=== PATIENT | male | born 1980 | race Caucasian/White ===

== ENCOUNTER → 2017-03-03 | Outpatient (CLI) | payer OTHER ==
[2017-03-03 10:18] LABS: CHOLESTEROL/HDL RATIO 4.7; THYROID STIMULATING HORMONE 0.901 uIu/ml (0.300-4.500)
[2017-03-05 20:26] LABS: HSV TYPE 1 DNA Not Detected (Not Detected); HSV TYPE 1&2 DNA SOURCE Serum; HSV TYPE 2 DNA Not Detected (Not Detected)
[2017-03-06 13:07] LABS: CHLAMYDIA TRACH RNA*** NOT DETECTED (NOT DETECTED); GC (NEIS GONORRHOEAE)RNA** NOT DETECTED (NOT DETECTED)
== END | disposition home or self-care (01) ==
LOC: C.LAB 08:11
PROVIDERS: ATTEND Internal Medicine
DX: Z00.00 Encounter for general adult medical examination without abnormal findings (principal); E66.9 Obesity, unspecified; Z13.6 Encounter for screening for cardiovascular disorders

== ENCOUNTER → 2017-03-09 | Outpatient (CLI) | payer OTHER ==
[~2017-03-09] VITALS: Ht 176.5 cm; Wt 114.5 kg
[2017-03-09 11:13] VITALS: BP 139/96; PULSE 75; Ht 176.5 cm; Wt 114.5 kg
== END | disposition home or self-care (01) ==
LOC: C.NEUR 10:57
PROVIDERS: ATTEND Internal Medicine Pulmonary Disease
DX: G47.33 Obstructive sleep apnea (adult) (pediatric) (principal)

== ENCOUNTER → 2017-04-15 | Outpatient (CLI) | payer OTHER ==
--- NOTE | 2017-04-16 06:18 | PAP/PSG TECHNICIAN REPORT ---
[facility] Dental Assistant Medical Assistant Polysomnogram Report Study name: None Report date: 04/16/2017 Study date: 04/15/2017 Referring Physician: DEVON RIZZO DO, DO Name: CHACHO JASSO Interpreting Physician: Devon Rizzo D.O. Date of : 1980 Dental Assistant Medical Assistant: Jessica Arreguin [facility]. Sex: Male Age: 36 Study Type: PSG Weight: 252 lbs 17 in Height: 36 years, Height 5' 9.5" Neck Circum: BMI: 36.68 Medications: NONE REPORTED Patient History 36 yr-old male here for a baseline/split study. He has a history of snoring, not feeling rested, and daytime sleepiness. His Rifle scale is 3. The test was started on room air. ETCO2 testing was not utilized during this study. Room 3 Parameters Monitored NPSG: E1-M2, E2-M1, Fp1-M2, Fp2-M1, F3-M2, F4-M2, F4-M1, C3-M2, C4-M2, C4-M1, O1-M2, O2-M2, O2-M1, T3-M2, T4-M1, P3-M2, P4-M1, CHIN1, CHIN2, HR, EKG, Legs, PFLOW, SNOR, FLOW, CFLOW, Tidal Volume, THOR, ABDO, SpO2, PLTH, CPRESS, ETCO2 Wave, ETCO2, pH Sleep Architecture Sleep Stages Time at Lights Off 10:44:51 PM STAGES Time (min.) TST (%) Time at Lights On 5:38:51 AM Wake 87.0 -- Total Recording Time (TRT) 414.00 min. N1 37.0 11 Total Sleep Period (TSP) 403.5 min. N2 200.0 61 Total Sleep Time (TST) 327.0min. N3 3.0 1 Awake Time 87.0 min. REM 87.0 27 Wake after Sleep Onset 76.5 min. Sleep Efficiency (SE) 79 % Sleep Onset Latency (JOSE) 10.5 min. Number of Stage 1 Shifts None Awakenings 19 Stage Changes 79 Number of REM periods 3 REM 87.0 27 REM Latency 149.0 min. NREM 240.0 73 Body Position Analysis Supine Right Left Side Prone Vertical Total Sleep Time (min.) 75.8 78.0 183.0 261.00 0.0 0.0 Total Sleep Time (%) 20% 24% 56% 80 0% N/A% Total Sleep Time REM (min.) 0.0 0.0 87.0 None 0.0 0.0 Total Sleep Time NREM (min.) 66.0 78.0 96.0 None 0.0 0.0 Intermittent Wake (min.) 9.8 7.8 69.4 None 0.0 0.0 Total Sleep Period (%) 19% None None None None None Arousals Myoclonus (PLM) * Events Count Index Events Count Index Spontaneous 20 4 Events Awake (PLMW) 67 46.2 Respiratory 5 1.5 Events Asleep w/ Arousal (PLMA) 4 0.7 PLM 4 1 Events Asleep w/o Arousal (PLMS) 35 6.4 Snoring 9 2 Total Asleep 39 7.2 Total 38 7 Total 106 15 Respiratory Analysis * CA OA MA CH H RERA Total Count 0 4 0 0 11 5 15 Index 0.0 0.7 0.0 0 2.0 1 3.7 Mean Duration 0.0 13.0 0.0 0.00 21.3 21.4 19.7 Longest Duration 0.0 16.4 0.0 0.00 0.0 23.8 28.6 Respiratory Event Summary Total Supine ~Supine Right Left Prone REM NREM Apneas Count 4 0 4 0 4 N/A 0 4 Index 0.7 0 1 0.0 1.3 N/A 0 1 Hypopneas (4% Desat) Count 11 1 10 6 4 N/A 3 8 Index 2.0 0.9 2 4.6 1.3 N/A 2.1 2.0 Apneas & All Hypopneas Count 15 1 14 6 8 N/A 3 12 Index 2.8 1 3 5 3 N/A 2.1 3.0 Respiratory Events (Fitter Up+All Hyp+RERA) Count 15 2 18 6 12 N/A 3 12 Index 3.7 2 4 4.6 3.9 N/A 2.1 4.3 Respiratory Related Arousal Count 5 2 7 0 7 N/A 0 8 Index 1.5 1 2 0 2 N/A 0 2 Snoring Analysis Supine Right Left Prone REM NREM Total Snore duration 30.1 min Snores count 537 417 546 N/A 111 1,389 1,500 Snore mean duration 1.2 Sec Snores index 488 321 179 N/A 76.6 347.3 275.2 TST with snoring (%) 9.2% Desaturation Event Summary: Minimum %SpO2 Event Count Mean/Min/Max Duration(sec.) Desaturation Index % Time In Bed > 90 20 31.4 / 9.0 / 60.0 2.9 99.4 86 - 90 0 N/A 0.0 0.6 81 - 85 0 N/A 0.0 0.0 76 - 80 0 N/A 0.0 0.0 71 - 75 0 N/A 0.0 0.0 66 - 70 0 N/A 0.0 0.0 61 - 65 0 N/A 0.0 0.0 56 - 60 0 N/A 0.0 0.0 51 - 55 0 N/A 0.0 0.0 < 50 0 N/A 0.0 0.0 Total REM NREM Awake <50% 0.0 min. 0.0 min. 0.0 min. 0.0 min. 51 - 60% 0.0 min. 0.0 min. 0.0 min. 0.0 min. 61 - 70% 0.0 min. 0.0 min. 0.0 min. 0.0 min. 71 - 80% 0.0 min. 0.0 min. 0.0 min. 0.0 min. 81 - 90% 2.6 min. 0.0 min. 2.6 min. 0.0 min. 91 - 100% 408.9 min. 87.0 min. 237.4 min. 84.4 min. Average 93 94 93 94 Minimum SpO2 90 91 90 90 Desaturation Event Index 2.9 2.8 2.8 4.1 # Desat. Events below 89% N/A N/A N/A N/A Time(%) with Saturation below 89% 0.0 0.0 0.0 0.0 Time(min.) with Saturation below 89% 0.0 0.0 0.0 0.0 Time (mins) REM (mins) NREM (mins) % of TST SpO2 Below 90% 6 N/A N6 0.0 SpO2 Below 88% 0 0 0 0 Heart Rate Analysis Min (bpm) Max (bpm) Average (bpm) Awake 53 107 70 NREM 51 89 66 REM 50 96 63 Overall 50 96 65 Supplemental O2 Values Minimum O2 level: None Value Start Time End Time Dental Assistant Medical Assistant Comments Mr. Jasso slept in the right, left, and supine positions. No cardiac arrhythmia or PLMs noted. No bruxism noted. Snoring was noted and scored as a 3 on a scale of 1 through 5. (0=no snoring, 5=snoring loud enough to be heard through a closed door or down the paz way). He did not meet specific Split-Night criteria during the diagnostic portion of this study. He did not wake up to use the restroom during the night. Mr. Jasso stated that he slept poorly. The final report will be interpreted and signed by a sleep physician. The completed physician report will then be placed in the patient medical record. Therapy (cm H2O) 0 TIB (min.) 414.0 TST (min.) 327.0 Sleep Onset (min.) 10.5 REM Onset From Sleep (min.) 149.0 Sleep Efficiency % 79 Wakefulness (%) 21 Wakefulness (min.) 87.0 NREM 1 (%) 11 NREM 1 (min.) 37.0 NREM 2 (%) 61 NREM 2 (min.) 200.0 NREM 3 (%) 1 NREM 3 (min.) 3.0 REM (%) 27 REM (min.) 87.0 # Arousals 38 Arousal Index 7 # Snore 1,500 Snore Index 275.2 AHI 2.8 AHI Supine 1 AHI Non-Supine 3 NREM AHI 3.0 REM AHI 2.1 RDI 3.7 # Obstructive Apnea 4 # Central Apnea 0 # Mixed Apnea 0 # Hypopneas 11 RERAs 5 Total Respiratory Events 20 Time Below SpO2 89% (min.) 0.0 Mean NREM SpO2 (%) 93 Mean REM SpO2 (%) 94 Mean Sleep SpO2 (%) 93 Min NREM SpO2 (%) 90 Min REM SpO2 (%) 91 Position Supine (min.) 75.8 Position Non-supine (min.) 261.0 LM Index Sleep 7.2 LM Index NREM 6.5 LM Index REM 9.0 Mean Heart Rate (bpm) 65 Min Heart Rate (bpm) 50
--- NOTE | 2017-04-20 17:14 | Sleep Study ---
Sleep Study Report Date of Service: 04/15/2017 Sleep Study Report Clinical data: The patient is a 36-year-old male with a history of snoring, not feeling rested , and daytime sleepiness. His Oxford score was 3. There is a family history of sleep apnea in his father and his brother. Patient has a BMI of 36.68. This was an in-lab overnight polysomnography. Sleep architecture: The total sleep period was 403.5 minutes. The total sleep time was 327.0 minutes. Sleep efficiency was modestly reduced to 79 percent. Sleep latency was normal at 10.5 minutes. The wake after sleep onset was elevated to 76.5 minutes. The REM latency was prolonged to 149 minutes. There were 3 REM periods during the night. Sleep consisted of stage N1 11 percent, stage N2 61 percent, stage N3 1 percent, and stage REM 27 percent. Arousal data: Patient had a total of 38 arousals including 20 spontaneous arousals, 5 respiratory arousals, 4 PLM arousals, and 9 snoring arousals. The arousal index was 7. PLM data: Patient had a total of 39 periodic limb movements of sleep for an index of 7.2. There were 4 arousals associated with limb movements for a PLM arousal index of 0.7. EKG: The underlying cardiac rhythm was normal sinus. No arrhythmias were noted. The cardiac rates ranged from 50 to 96 beats per minute. The average heart rate was 65 beats per minute. Respiratory data: The patient had a total of 15 respiratory events including 4 obstructive apneas and 11 hypopneas. Hypopneas were scored according to the 4 percent desaturation rule. The longest apnea was 16.4 seconds. The mean hypopnea was 21.3 seconds. The patient also had 5 RERAs. The apnea-hypopnea index was 2.8. This would be within the limits of normal. This would suggest no significant sleep apnea. Oximetry data: The patient had an average saturation of 93 percent. The minimum saturation was 90 percent. Semaphore Operator comments: The patient slept on the right, left, and supine positions. No cardiac arrhythmias noted. No bruxism noted. Snoring was noted and scored as a 3 on a scale of 1 through 5. Following the study the patient stated that he slept poorly. He did complain that there was too much noise from a loud air vent. Impressions: 1. Primary snoring Comments: The patient had no significant sleep apnea. His apnea-hypopnea index was 2.8 which would be within the limits of normal. Sleep efficiency was modestly decreased. Sleep architecture showed somewhat of an increase in stage N1. The patient was supine only 19 percent of the night. There was a very mild number of limb movements. Recommendations: 1. The patient has moderate snoring. He does not have significant sleep apnea. Consideration could be given to an ENT evaluation if the snoring is a major issue for him. 2. Weight loss is advised in light of the elevation of body mass index at 36.68. 3. If possible the patient should avoid sleeping in the supine position. This may result in improvement in snoring as well as sleep disordered breathing. 4. The patient should be advised of the appropriate principles of sleep hygiene including having a regular sleep-wake schedule and allowing approximately 7.5 hours of sleep time per night. Copies To 1: Devon Caal DO; [place] M.D.
== END | disposition home or self-care (01) ==
LOC: C.NEUR 20:00
PROVIDERS: ATTEND Internal Medicine Pulmonary Disease
DX: G47.33 Obstructive sleep apnea (adult) (pediatric) (principal)

== ENCOUNTER → 2018-03-21 | Outpatient (CLI) | payer OTHER | END | disposition home or self-care (01) | LOC: C.LABBFT 08:22 | PROVIDERS: ATTEND Internal Medicine | DX: Z13.6 Encounter for screening for cardiovascular disorders (principal) ==